=== PATIENT | male | born 1980 | race African-American/Black ===

== ENCOUNTER 2017-02-16 17:35 | Emergency (ER) | payer OTHER ==
[~2017-02-16] VITALS: Ht 182.9 cm; Wt 79.0 kg
[2017-02-16] MEDS ORDERED: AMOXICILLIN500 MG PO (18:35)
[2017-02-16 18:42] VITALS: BP 128/79
== END 2017-02-16 18:42 | disposition home or self-care (01) ==
LOC: EME 17:35
DX: J02.0 Streptococcal pharyngitis (principal)
CPT/HCPCS: 87651 90; 99281; 99284